=== PATIENT | female | born 1975 | race Caucasian/White ===

== ENCOUNTER 2019-02-25 09:53 | Emergency (ER) | payer OTHER ==
[2019-02-25] MEDS: ONDANSETRON 4 MG INJ IV (15:14)
[2019-02-25] MEDS: METHYLPREDNISOLONE 125 MG INJ IV (15:14)
[2019-02-25] MEDS: morphine 4 MG/ML VIAL IV (15:17)
[2019-02-25 15:42] LABS: TROPONIN-I < 0.012 ng/ml (0.000-0.120)
== END 2019-02-25 19:08 | disposition home or self-care (01) ==
LOC: E/R 09:53
DX: R07.89 Other chest pain (principal); E11.9 Type 2 diabetes mellitus without complications; Z79.84 Long term (current) use of oral hypoglycemic drugs
CPT/HCPCS: 36415; 71045; 84484; 93005; 96374; 96375; 99285-25